=== PATIENT | female | born 2000 | race Caucasian/White ===

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

== ENCOUNTER 2019-01-23 18:00 | Emergency (ER) | payer BC ==
[~2019-01-23] VITALS: Ht 167.6 cm; Wt 101.8 kg
[2019-01-23 18:07] VITALS: Ht 167.6 cm; Wt 101.8 kg
[2019-01-23] MEDS ORDERED: PROZAC40 MG PO (18:09)
[2019-01-23 18:43] LABS: BASOPHILS 0.4 % (0-2); EOSINOPHILS 2.4 % (0-7); HEMATOCRIT 38.3 % (36.0-48.0); HEMOGLOBIN 12.5 g/dL (12-16); IMMATURE GRANULOCYTES 0.1 % (0-5); LYMPHOCYTES 28.6 % (15-50); MCH 27.1 pg (26.0-34.0); MCHC 32.6 g/dL (31.0-37.0); MCV 82.9 fL (80.0-100.0); MEAN PLATELET VOLUME 9.4 fL (7.4-10.4); NEUTROPHILS 61.5 % (40-80); RBC 4.62 10x6/uL (4.00-5.40); RDW 14.3 % (11.5-14.5); WBC 10.9 10x3/uL (4.8-10.8)
[2019-01-23 18:44] LABS: PLATELET COUNT 420 10x3/uL (130-400)
[2019-01-23 18:51] LABS: INR 0.93 (0.85-1.17)
[2019-01-23 18:52] LABS: APTT 29.8 SECONDS (22.8-39.4)
[2019-01-23 19:01] LABS: ALBUMIN 3.8 g/dL (3.4-5.0); ALKALINE PHOSPHATASE 122 U/L (46-116); ALT (SGPT) 35 U/L (10-68); BILIRUBIN - TOTAL 0.22 mg/dL (0.2-1.3); CALC OSMOLALITY 277 mosm/kg (275-300); CALCIUM 8.6 mg/dL (8.5-10.1); CARBON DIOXIDE 26.5 mmol/L (21.0-32.0); CHLORIDE - SERUM 105 mmol/L (98-107); CREATININE - SERUM 0.9 mg/dL (0.6-1.3); GLUCOSE 84 mg/dL (74-106); POTASSIUM - SERUM 3.8 mmol/L (3.5-5.1); PROTEIN - SERUM 7.9 g/dL (6.4-8.2); SODIUM 140 mmol/L (136-145); UREA NITROGEN 13 mg/dL (7-18); eGFR NON AFRICAN AMERICAN 85 mL/min (90-120)
[2019-01-23 19:29] LABS: HCG SERUM NEGATIVE (NEGATIVE)
[2019-01-23] MEDS ORDERED: FLOVENT HFA 22012 GM (20:18)
[2019-01-23] MEDS ORDERED: PHENERGAN6.25 MG/5 (20:19)
[2019-01-23] MEDS ORDERED: CLARITIN 10 MG10 MG PO (20:19)
[2019-01-23] MEDS ORDERED: MEDROL DOSE PACK4 MG PO (20:19)
[2019-01-23] MEDS ORDERED: SULFAMETHOXAZOL1 TA2 PO (20:19)
[2019-01-23] MEDS ORDERED: MUCINEX600 MG PO (20:20)
[2019-01-23 21:32] LABS: APPEARANCE CLEAR (CLEAR); BILIRUBIN NEGATIVE (NEGATIVE); COLOR YELLOW (YELLOW); GLUCOSE NEGATIVE (NEGATIVE); KETONE NEGATIVE (NEGATIVE); NITRITE NEGATIVE (NEGATIVE); PROTEIN NEGATIVE (NEGATIVE); UROBILINOGEN NORMAL (NORMAL)
[2019-01-23 22:06] VITALS: BP 125/78
== END 2019-01-23 22:07 | disposition home or self-care (01) ==
LOC: D.ER 18:00
PROVIDERS: Family Medicine
DX: R10.9 Unspecified abdominal pain (principal); K92.2 Gastrointestinal hemorrhage, unspecified

== ENCOUNTER 2019-11-17 22:24 | Emergency (ER) | payer BC ==
[~2019-11-17] VITALS: Ht 167.6 cm; Wt 104.3 kg
[~2019-11-17 22:24] MED LIST changes: +CLARITIN 10 MG10 MG PO; +FLOVENT HFA 22012 GM; +MEDROL DOSE PACK4 MG PO; +MUCINEX600 MG PO; +PHENERGAN6.25 MG/5; +PROZAC40 MG PO; +SULFAMETHOXAZOL1 TA2 PO
[2019-11-17 22:36] VITALS: Ht 167.6 cm; Wt 104.3 kg
[2019-11-17] MEDS ORDERED: KLONOPIN1 MG PO (23:24)
[2019-11-17 23:47] VITALS: BP 130/72
== END 2019-11-17 23:48 | disposition home or self-care (01) ==
LOC: D.ER 22:24
DX: F41.8 Other specified anxiety disorders (principal); R07.9 Chest pain, unspecified

== ENCOUNTER → 2020-09-21 10:50 | Outpatient (CLI) | payer BC ==
[2019-11-17 22:36] VITALS: BMI 36.2
[~2020-09-21 10:50] MED LIST changes: +KLONOPIN1 MG PO
== END | disposition home or self-care (01) ==
LOC: D.MRI 10:50
PROVIDERS: ATTEND Nurse Practitioner Family
DX: H57.89 Other specified disorders of eye and adnexa (principal)